=== PATIENT | male | born 2000 | race Caucasian/White ===

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

== ENCOUNTER 2020-03-20 20:05 | Emergency (ER) | payer SELFPAY ==
[~2020-03-20] VITALS: Ht 182.9 cm; Wt 79.4 kg
[~2020-03-20 20:05] MED LIST changes: +CYCL5TAB PO
--- NOTE | 2020-03-20 20:19 | ED Upper Extremity ---
General Chief Complaint: Laceration Stated Complaint: L HAND FINGERS LAC Source: patient Exam Limitations: no limitations History of Present Illness Date Seen by Provider: Mar 20, 2020 Time Seen by Provider: 20:17 Initial Comments To ER with a left thumb pointer middle finger laceration after he was trying to push open a door at home and his hand slipped and went through the glass part of the door. Onset: just prior to arrival Severity: moderate Pain/Injury Location: left thumb, left 2nd finger, left 3rd finger Method of Injury: direct blow Modifying Factors: Worse With Movement Allergies and Home Medications Allergies Coded Allergies: No Known Drug Allergies (Unverified , 10/30/12) Home Medications Cyclobenzaprine HCl 5 Mg Tablet, 5 MG PO TID PRN for PAIN-MODERATE TO SEVERE Prescribed by: CANDACE OCAMPO on 01/06/18 1648 Methylphenidate HCl 54 Mg Tab.er.24, 1 TAB PO UD, (Reported) Patient Home Medication List Home Medication List Reviewed: Yes Review of Systems Constitutional: see HPI EENTM: see HPI Respiratory: no symptoms reported Cardiovascular: no symptoms reported Genitourinary: no symptoms reported Musculoskeletal: no symptoms reported Skin: no symptoms reported Psychiatric/Neurological: No Symptoms Reported Past Kumecuc-Fpejlh-Rinjyq Hx Patient Social History Drug of Choice: meth, marijuana, coccaine Type Used: Cigarettes Recent Foreign Travel: No Contact w/Someone Who Travel: No Recent Hopitalizations: No Physical Abuse: No Sexual Abuse: No Mistreated: No Fear: No Immunizations Up To Date Tetanus Booster (TDap): Less than 5yrs PED Vaccines UTD: Yes Date of Influenza Vaccine: Sep 03, 2012 Seasonal Allergies Seasonal Allergies: No Past Medical History Surgeries: Yes Eye Surgery Respiratory: Yes Asthma Currently Using CPAP: No Currently Using BIPAP: No Cardiac: No Neurological: No Reproductive Disorders: No Sexually Transmitted Disease: No HIV/AIDS: No Genitourinary: No Gastrointestinal: No Musculoskeletal: No Endocrine: No Hearing Impairment: Denies Cancer: No Psychosocial: Yes ADD/ADHD Integumentary: No Blood Disorders: No Adverse Reaction/Blood Tranf: No Family Medical History No Pertinent Family Hx Physical Exam Vital Signs Vital Signs - First Documented 03/20/20 20:10 Temp 36.9 Pulse 92 Resp 19 B/P (MAP) 138/87 O2 Delivery Room Air Capillary Refill : Height, Weight, BMI Height: 6'0" Weight: 180lbs. oz. [id number]; 24.41 BMI Method:Stated General Appearance: WD/WN, no apparent distress Respiratory: no respiratory distress, no accessory muscle use Gastrointestinal: normal bowel sounds, non tender, soft Elbow/Forearm: normal inspection, non-tender Wrist: Yes normal inspection, Yes non-tender Hand: Left, laceration (1 cm laceration to the distal pad of thumb as well as middle phalanx of pointer and middle finger. ) Neurologic/Psychiatric: alert, normal mood/affect, oriented x 3 Skin: normal color, warm/dry Procedures/Interventions Wound Location: Upper Extremities Wound Length (cm): 3 Wound's Depth, Shape: tendon Irrigated w/ Saline (ccs): 100 Anesthesia: 1% Lidocaine Volume Anesthetic (ccs): 10 Suture: Ethlion Suture Size: 4-0, 5-0 Number of Sutures: 20 Layer Closure?: 1 Progress The laceration to the pad of the middle phalanx middle finger is closed with 6 simple interrupted sutures size 5-0 Ethilon. The laceration to the middle pad of the pointer finger has lacerated the flexor tendon. He is unable to flex the finger at the PIP joint. This overlying skin was sutured with simple interrupted sutures size 5-0 Ethilon. I discussed with him the need for orthopedic follow-up soon for surgical repair of the tendon laceration. He has brisk capillary refill of the fingertip. The pad of the thumb has a large section of deeply avulsed tissue, actively oozing of blood. The wound edges are too far apart to close with suture but it was actively bleeding. As such a couple of layers of Surgicel were sutured in place with simple interrupted sutures size 4-0 Prolene just for the sake hemostasis. Progress/Results/Core Measures Results/Orders Vital Signs/I&O 03/20/20 20:10 Temp 36.9 Pulse 92 Resp 19 B/P (MAP) 138/87 O2 Delivery Room Air Departure Impression Primary Impression: Finger laceration Qualified Codes: S61.219A - Laceration without foreign body of unspecified finger without damage to nail, initial encounter Additional Impression: Flexor tendon laceration, finger, open wound Disposition: HOME, SELF-CARE Condition: Stable Departure-Patient Inst. Decision time for Depature: 21:06 Referrals: DINORAH HERNANDEZ DO DRE ADAMS DO GONZALES,LOCAL PHYSICIAN (PCP) Primary Care Physician MARJORIE ALBA MD, MICHAEL P MD Patient Instructions: Laceration Repair With Stitches (DC) Add. Discharge Instructions: 1. Call Dr. Hernandez tomorrow to make an appointment for follow-up in regards to the thumb laceration as he can help with wound care of his thumb. The flexor tendon that allows you to bend your finger as in pulling the trigger has been lacerated on your pointer finger. This needs surgical repair. Call one of the orthopedic surgeon listed to make an appointment to be seen. Take antibiotics as directed and pain medication. Leave the dressings in place for 48 hours, then return to the emergency room for dressing change. All discharge instructions reviewed with patient and/or family. Voiced understanding. Scripts Cephalexin (Keflex) 500 Mg Capsule 500 MG PO QID, #28 CAP Prov: CANDACE OCAMPO CONVENTIONAL UNDERWRITER 03/20/20 CANDACE OCAMPO APRN Mar 20, 2020 20:19
[2020-03-20] MEDS ORDERED: HYDR-3870 PO (21:09)
[2020-03-20] MEDS ORDERED: CEPH-507 PO (21:09)
== END 2020-03-20 21:41 | disposition home or self-care (01) ==
LOC: EDUNIT# 20:05 → ER 20:06
DX: S61.012A Laceration without foreign body of left thumb without damage to nail, initial encounter (principal); S61.213A Laceration without foreign body of left middle finger without damage to nail, initial encounter; S61.211A Laceration without foreign body of left index finger without damage to nail, initial encounter; F90.9 Attention-deficit hyperactivity disorder, unspecified type; W25.XXXA Contact with sharp glass, initial encounter; Y92.009 Unspecified place in unspecified non-institutional (private) residence as the place of occurrence of the external cause
CPT/HCPCS: 12032

== ENCOUNTER 2020-03-22 17:18 | Emergency (ER) | payer SELFPAY ==
[~2020-03-22] VITALS: Ht 165.1 cm; Wt 79.4 kg
[~2020-03-22 17:18] MED LIST changes: +CEPH-507 PO; +HYDR-3870 PO
[2020-03-22 17:32] VITALS: BP 122/76
--- NOTE | 2020-03-22 17:51 | ED Suture Removal/Wound Check ---
Suture/Wound Re-check General Appearance: WD/WN, no apparent distress Neuro/Tendon: normal sensation Skin Exam: normal color, warm/dry Physical Exam Vital Signs Vital Signs - First Documented 03/22/20 17:32 Temp 36.8 Pulse 97 Resp 18 B/P (MAP) 122/76 Pulse Ox 98 O2 Delivery Room Air Capillary Refill : General Appearance: WD/WN, no apparent distress HEENT: PERRL/EOMI, normal ENT inspection Respiratory: no respiratory distress, no accessory muscle use Extremities: normal range of motion, non-tender Neurologic/Psychiatric: alert, normal mood/affect, oriented x 3 Skin: normal color, warm/dry Skin Problem Character: other (on pointer and middle finger are healing as expected. He has an appointment on Wednesday with Dr. Thomson in regards to the large tissue avulsion to the pad of the thumb. The middle and pointer finger will be covered with a simple Band-Aid. He has not yet made follow-up arrangements for the flexor tendon injury of the pointer finger.) Departure Impression Primary Impression: Encounter for wound care Disposition: HOME, SELF-CARE Condition: Stable Departure-Patient Inst. Decision time for Depature: 17:50 Referrals: NO,LOCAL PHYSICIAN (PCP/Family) Primary Care Physician Patient Instructions: Wound Care (DC) CANDACE OCAMPO TERRAZZO JOURNEYMAN Mar 22, 2020 17:50
[2020-03-22] MEDS ORDERED: HYDR-3870 PO (18:06)
== END 2020-03-22 18:13 | disposition home or self-care (01) ==
LOC: EDUNIT# 17:18 → ER 17:19
DX: S61.011D Laceration without foreign body of right thumb without damage to nail, subsequent encounter (principal); S61.210D Laceration without foreign body of right index finger without damage to nail, subsequent encounter; S61.212D Laceration without foreign body of right middle finger without damage to nail, subsequent encounter; X58.XXXD Exposure to other specified factors, subsequent encounter
CPT/HCPCS: 29130

== ENCOUNTER 2020-10-20 18:44 | Emergency (ER) | payer SELFPAY ==
[~2020-10-20] VITALS: Ht 170 cm; Wt 77.0 kg
--- NOTE | 2020-10-20 18:59 | NUR ---
SEE DR CRUMP CHARTING FOR DESCRIPTION OF WOUND.
[2020-10-20] MEDS ORDERED: KETOROLAC 30 MG/ML VIAL IVP STA (19:03)
--- NOTE | 2020-10-20 19:05 | NUR ---
[facility] [employer] NOTIFIED OF PT BEING IN THE ER.
[2020-10-20 19:09] LABS: BASOPHILS % (AUTO) 0 % (0-10); EOSINOPHILS # (AUTO) 0.2 10^3/uL (0.0-0.3); EOSINOPHILS % (AUTO) 2 % (0-10); HEMATOCRIT 44 % (40-54); HEMOGLOBIN 15.3 g/dL (13.3-17.7); LYMPHOCYTES # (AUTO) 3.4 10^3/uL (1.0-4.0); LYMPHOCYTES % (AUTO) 29 % (12-44); MEAN CORPUSCULAR HEMOGLOBIN 32 pg (25-34); MEAN CORPUSCULAR HGB CONC 35 g/dL (32-36); MEAN CORPUSCULAR VOLUME 92 fL (80-99); MEAN PLATELET VOLUME 10.6 fL (9.0-12.2); MONOCYTES # (AUTO) 1.3 10^3/uL (0.0-1.0); MONOCYTES % (AUTO) 11 % (0-12); NEUTROPHILS # (AUTO) 6.7 10^3/uL (1.8-7.8); NEUTROPHILS % (AUTO) 58 % (42-75); PLATELET COUNT 155 10^3/uL (130-400); WHITE BLOOD COUNT 11.6 10^3/uL (4.3-11.0)
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
[2020-10-20] MEDS ORDERED: LACTATED RINGERS 1,000 ML IV ONE (19:15)
--- NOTE | 2020-10-20 19:15 | NUR ---
[employer] HERE TO TALK TO THE PT.
[2020-10-20 19:29] LABS: ALANINE AMINOTRANSFERASE 17 U/L (0-55); ALBUMIN 4.5 GM/DL (3.2-4.5); ALKALINE PHOSPHATASE 54 U/L (40-136); BILIRUBIN,TOTAL 1.2 MG/DL (0.1-1.0); BUN/CREATININE RATIO 14; CARBON DIOXIDE 24 MMOL/L (21-32); CHLORIDE 103 MMOL/L (98-107); CREATININE SERUM 1.04 MG/DL (0.60-1.30); GFR ESTIMATED > 60; GLUCOSE 78 MG/DL (70-105); POTASSIUM 3.7 MMOL/L (3.6-5.0); SODIUM 140 MMOL/L (135-145); TOTAL PROTEIN 7.5 GM/DL (6.4-8.2)
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
--- NOTE | 2020-10-20 19:54 | NUR ---
with patient permission this rn spoke with patient mother. updated we were waiting on radiology results.
[2020-10-20] MEDS ORDERED: ceFAZolin INJECTION 1,000 MG in WATER (STERILE) FOR INJECTION 10 ML IV ONE (20:00)
--- NOTE | 2020-10-20 20:09 | NUR ---
IN TALKING TO THE PT AT THIS TIME.
[2020-10-20] MEDS ORDERED: HYDROcodone/APAP 7.5 MG/325 MG (LORTAB, LORCET PLUS) TABLET PO STA (20:26)
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
[2020-10-20] MEDS ORDERED: CEPH500C PO (20:44)
[2020-10-20] MEDS ORDERED: HYDR-4226 PO (20:44)
[2020-10-20 20:47] VITALS: BP 133/85
== END 2020-10-20 20:47 | disposition home or self-care (01) ==
LOC: EDUNIT# 18:44 → ER 18:47
DX: S82.092A Other fracture of left patella, initial encounter for closed fracture (principal); F41.9 Anxiety disorder, unspecified; F90.9 Attention-deficit hyperactivity disorder, unspecified type; F17.210 Nicotine dependence, cigarettes, uncomplicated; W34.00XA Accidental discharge from unspecified firearms or gun, initial encounter
CPT/HCPCS: 36415; 73564; 80053; 85025; 86141

== ENCOUNTER 2020-10-22 16:27 | Emergency (ER) | payer SELFPAY ==
[~2020-10-22] VITALS: Ht 67 cm; Wt 55.0 kg
[~2020-10-22 16:27] MED LIST changes: +CEPH500C PO; +HYDR-4226 PO
[2020-10-22] MEDS ORDERED: ACHD5005 PO (17:04)
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
[2020-10-22 17:40] VITALS: BP 146/62
== END 2020-10-22 17:40 | disposition home or self-care (01) ==
LOC: EDUNIT# 16:27 → ER 16:31
DX: S80.02XA Contusion of left knee, initial encounter (principal); F90.9 Attention-deficit hyperactivity disorder, unspecified type; F17.210 Nicotine dependence, cigarettes, uncomplicated; W34.09XA Accidental discharge from other specified firearms, initial encounter
CPT/HCPCS: 99283